=== PATIENT | male | born 1985 | race Caucasian/White ===

== ENCOUNTER 2016-12-16 08:33 | Inpatient (IN) | payer SELFPAY ==
[~2016-12-16] VITALS: Ht 182.9 cm; Wt 84.9 kg
[~2016-12-16 08:33] MED LIST: IBUP-1827 PO
[2016-12-16 08:38] VITALS: BP 157/96; PULSE 77; RESP 16; O2SAT 97
[2016-12-16] MEDS ORDERED: 0.9% Sodium Chloride 1,000 ML IV ONE ×2 (08:43→10:00)
--- NOTE | 2016-12-16 08:43 | ED.REPORT ---
HPI-General Illness Date of Service Dec 16, 2016 ED Provider: Jamir Navarro MD 30 year old male who presents to the ER with bilat arm pain after doing 195 pushups 4 days ago. The patient had some soreness initially, which has not improved. He then noticed that his urine was brown 2 days ago, which has since improved. Pt was incarcerated and saw the shelter nurse yesterday. He was noted to have a critical CPK [id number] and was referred here. Pt still reports severe arm pain. Pt denies any other significant medical history. Nursing Notes Stated Complaint: ARM PAIN Chief Complaint: General Complaint Nursing Notes Reviewed: Yes Allergies: Coded Allergies: No Known Allergies (Unverified , 05/14/16) Scheduled PRN Ibuprofen (Ibuprofen) 600 Mg Tablet 600 MG PO QID PRN PRN For Pain General Time Seen by MD: 08:35 Chief Complaint Other (Arm pain) Hx Obtained From: Patient Arrived By: Walk-in Sudden in Onset?: No Onset Occurred: 4 days ago Symptom Duration: Since onset Location: : Arm left: Arm right Quality: Painful Severity: Current: Severe Associated with: Denies: Fever, Shortness of breath Pertinent Negative: Relieved by nothing Past Medical History Past Medical History none reported Past Surgical History none reported Smoking History Smoker Current Status UNK Social History Does drink EtOH, but has not drank for 6 weeks Ambulatory Status Independent Review of Systems Full Review of Systems Respiratory: Denies: Shortness of breath Cardiovascular: Denies: Chest pain Musculoskeletal: Reports: Extremity pain Complete sys rev & neg: except as marked. Physical Exam Muscle soreness to chest, abd and deltoids Vital Signs Vital Signs Date Time Temp Pulse Resp B/P Pulse Ox O2 Delivery O2 Flow Rate FiO2 12/16/16 10:30 75 16 147/84 98 Room Air 12/16/16 08:38 36.6 77 16 157/96 97 Initial VS: Reviewed General/Constitutional: Well-developed, Well-nourished Head / Eyes: Atraumatic, Normocephalic, PERRL ENT: Mucous membranes moist, Conjunctiva normal, No scleral icterus Neck: Supple, Non-tender, Full range of motion Respiratory: Breath sounds normal, Clear to auscultation, No respiratory distress Cardiovascular: Regular rate & rhythm, Heart sounds normal, Intact distal pulses Abdomen / GI: Soft, Non-tender, No guarding, No rebound, No distention Extremities: Vascular intact, Neuro intact, No swelling, No tenderness Skin: Warm, Dry, No cyanosis Neurologic: Alert, Oriented, Nonfocal Psychiatric: Mood/affect normal, Behavior normal, Normal thought content Interpretation & Diagnostics Lab Results Interpretation Result Diagram: 12/16/16 0902 12/16/16 0902 Test 12/16/16 09:02 12/16/16 09:23 12/16/16 10:38 White Blood Count 8.4th/mm3 (3.8-10.1) Red Blood Count 4.74mil/mm3 (4.40-5.80) Hemoglobin 14.6g/dL (13.8-17.2) Hematocrit 41.9% (41.0-50.0) Mean Corpuscular Volume 88.4fL (81-100) Mean Corpuscular Hemoglobin 30.8pg (27.0-35.0) Mean Corpuscular Hemoglobin Concent 34.8% (32.0-37.0) Red Cell Distribution Width 12.4% (12.3-15.4) Platelet Count 246bil/L (150-400) Neutrophils (%) (Auto) 68.0% (40-74) Lymphocytes (%) (Auto) 20.0% (14-46) Monocytes (%) (Auto) 9.0% (4-12) Eosinophils (%) (Auto) 2.4% (0-5) Basophils (%) (Auto) 0.4% (0-3) Sodium Level 139mEq/L (134-144) Potassium Level 4.8mEq/L (3.5-5.2) Chloride Level 100mEq/L (97-108) Carbon Dioxide Level 23mmol/L (18-29) Blood Urea Nitrogen 16mg/dL (6-20) Creatinine 1.33mg/dL (0.76-1.27) Estimat Glomerular Filtration Rate 68mL/min (>59) Glucose Level 105mg/dL (60-99) Calcium Level 9.4mg/dL (8.5-10.1) Total Bilirubin 0.3mg/dL (0.0-1.2) Aspartate Amino Transf (AST/SGOT) 2333U/L (0-50) Alanine Aminotransferase (ALT/SGPT) 837U/L (0-44) Alkaline Phosphatase 59U/L (25-150) Total Protein 6.9g/dL (6.4-8.4) Albumin 4.0g/dL (3.4-5.0) Urine Color Sara (YELLOW) Urine Appearance Clear (CLEAR,HAZY) Urine pH 6.0 (5.0-8.0) Urine Specific [place] 1.012 (1.003-1.035) Urine Protein 100mg/dL (NEG,TRACE) Urine Glucose (UA) Negativemg/dL (NEGATIVE) Urine Ketones Negativemg/dL (NEGATIVE) Urine Occult Blood Large (NEGATIVE) Urine Nitrite Negative (NEGATIVE) Urine Bilirubin Negative (NEGATIVE) Urine Ictotest Negative (Negative) Urine Urobilinogen Normalmg/dL (NORMAL) Urine Leukocyte Esterase Trace (NEGATIVE) Urine RBC 0-2/hpf (0-2) Urine WBC 6-10/hpf (0-5) Urine Epithelial Cells Few/hpf (NONE-MOD) Urine Crystals None seen (NONE SEEN) Urine Bacteria None/hpf (NONE-FEW) Urine Hyaline Casts None/lpf (NONE) Urine Granular Casts Occasional (NONE SEEN) Urine Waxy Casts None seen (NONE SEEN) Urine Red Blood Cell Casts None seen (NONE SEEN) Urine White Blood Cell Casts None seen (NONE SEEN) Urine Mucus None seen (None Seen) Urine Trichomonas None seen (NONE SEEN) Urine Yeast None (NONE SEEN) Urinalysis Comment None Urine Culture Reflexed Indicated Re-Eval/Medical Decision Time of Eval: 09:28 Re-Evaluation/Progress Note: Pt requesting pain control. Awaiting UA. Time of Eval: 10:17 Re-Evaluation/Progress Note: Updated pt. Recommended admission. Pt understands and agrees with plan. All questions addressed. Consultation : Referral / Consult Name: David Urbina MD Consulted With: Hospitalist Call Returned at: 10:27 [employer]: Will see patient, Agrees with eval, Agrees with plan, Accepts admit Counseled Regarding: Diagnosis, Lab results, Need for admission Discharge & Departure Primary Impression: Rhabdomyolysis Rhabdomyolysis type: traumatic Encounter type: initial encounter Qualified Code: T79.6XXA - Traumatic ischemia of muscle, initial encounter Additional Impression: Acute hepatitis Disposition: ADMITTED TO HOSPITAL Discharge Condition All VS Reviewed: Yes Referrals: NOPCP (PCP) Scribe Attestation Portions of this note were transcribed by Teresa Hassan. I, (Dr. Navarro) personally performed the history, physical exam and medical decision-making; I reviewed and confirmed the accuracy of the information in the transcribed note. Signed by: Teresa Hassan. Brandi, 12/16/2016, 1028 Jamir Navarro MD Dec 16, 2016 08:43 Teresa Hassan Dec 16, 2016 09:05
[2016-12-16 09:15] LABS: BASOPHILS % (AUTO) 0.4 % (0-3); EOSINOPHILS % (AUTO) 2.4 % (0-5); Mean Corpuscular Hemoglobin 30.8 pg (27.0-35.0); Mean Corpuscular Volume 88.4 fL (81-100); Platelet Count 246 bil/L (150-400)
[2016-12-16 10:28] LABS: APPEARANCE,URINE CLEAR (CLEAR,HAZY); COLOR,URINE AMBER (YELLOW)
[2016-12-16 10:29] LABS: OCCULT BLOOD,URINE LARGE (NEGATIVE); UROBILINOGEN,URINE NORMAL (NORMAL)
[2016-12-16 10:30] VITALS: BP 147/84; PULSE 75; RESP 16; O2SAT 98
[2016-12-16] MEDS ORDERED: Ondansetron 2 mg/mL 2 mL Inj IVPUSH PRN ×2 (10:30→11:00)
[2016-12-16] MEDS ORDERED: Polyethylene Glycol (PEG) 17 Gm Powder PO PRN (10:30)
[2016-12-16] MEDS ORDERED: Alum-Mag Hydrox-Simeth 30 mL Suspension PO PRN ×2 (10:30→11:00)
[2016-12-16 10:31] LABS: ICTOTEST,URINE NEGATIVE (Negative)
[2016-12-16 11:21] VITALS: BP 147/84; PULSE 75; RESP 16; O2SAT 98
--- NOTE | 2016-12-16 11:36 | DRSVH ---
PROCEDURE: X-RAY CHEST, TWO VIEWS ([id number]) INDICATIONS: Elevated CPK possible Cardiomegaly TECHNIQUE: 2 views of the chest were acquired. COMPARISON: None. FINDINGS: Surgical changes and devices: None. Lungs and pleura: No pleural effusions or pneumothorax. Lungs are clear. Mediastinum: Mediastinal contours are normal. Heart size is normal. Bones and chest wall: No suspicious bony abnormalities. Soft tissues appear unremarkable. IMPRESSION: No acute cardiopulmonary disease process. Dictated by: Niharika Santoro MD, PhD on 12/16/2016 at 11:35 Approved by: Niharika Santoro MD, PhD on 12/16/2016 at 11:35
[2016-12-16 11:51] VITALS: BP 150/93; PULSE 69; RESP 16; O2SAT 95
[2016-12-16] MEDS: 0.9% Sodium Chloride 1,000 ML IV SCH ×3 (12:16→22:27)
--- NOTE | 2016-12-16 12:33 | NUR ---
Admit Patient arrived to room 239-2 at 1140 from ED. Patient oriented to room, steady on feet. Patient reports pain 4/10.
[2016-12-16 18:00] VITALS: BP 152/78; PULSE 70; RESP 16; O2SAT 95
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
[2016-12-16 20:04] VITALS: BP 173/94; PULSE 66; RESP 18; O2SAT 97
--- NOTE | 2016-12-17 01:28 | NUR ---
discomfort patient has discomfort to the arms. rates 6. per MD note (and explained to patient by md) "hold anti analgesics" patient notes 6 is tolerable. watching tv, texting. distracted. given supportive cares. refused heating pad. or ice.
[2016-12-17] MEDS: 0.9% Sodium Chloride 1,000 ML IV SCH ×5 (02:39→22:29)
[2016-12-17 04:17] VITALS: BP 122/78; PULSE 66; RESP 16; O2SAT 93
[2016-12-17 06:08] LABS: Hepatitis A Antibody IgM Negative (Negative); Hepatitis B Core Antibody IgM Negative (Negative)
[2016-12-17 06:37] LABS: BASOPHILS % (AUTO) 0.4 % (0-3); EOSINOPHILS % (AUTO) 2.8 % (0-5); MONOCYTES % (AUTO) 6.3 % (4-12); Mean Corpuscular Hemoglobin 30.3 pg (27.0-35.0); Mean Corpuscular Volume 90.8 fL (81-100); NEUTROPHILS % (AUTO) 62.7 % (40-74); Platelet Count 195 bil/L (150-400)
[2016-12-17 06:49] LABS: INR 0.96 ratio
[2016-12-17 07:16] LABS: Phosphorus 5.4 mg/dL (2.5-4.9)
[2016-12-17 11:01] VITALS: BP 120/64; PULSE 61; RESP 16; O2SAT 96
--- NOTE | 2016-12-17 15:37 | NUR ---
Social Work: Screening Data: Pt is a 30 y/o male admitted for rhabdo, acute hepatitis. Pt's PCP is not listed. Pt's insurance is self pay. EMR reviewed. Readmit score is 1, low. [facility] is [facility] and will [facility] to [facility] d/c. YARN [employer]ER will give pt [facility] application. Pt reports hx of alcohol abuse but has not had anything to drink in over a month while he has been in [facility]. [employer]ER will continue to follow if needs arise. Assessment: Pt who is independent at baseline. Plan: Pt will d/c back to [facility] when medically stable for d/c. [facility] [employer]ER will provide [facility] application for pt. YARN [employer]ER will continue to follow if needs arise. GO Mcfadden
[2016-12-17 17:59] VITALS: BP 157/91; PULSE 73; RESP 16; O2SAT 96
--- NOTE | 2016-12-17 18:01 | NUR ---
Pain Patient states pain is "improving". Last assessment patient rated pain 3/10. Patient watching tv, texting, visiting with family.
--- NOTE | 2016-12-17 21:59 | PCM.PNMED ---
Subjective Date of Service Dec 17, 2016 Subjective The patient is feeling a little bit better and his urine is starting to clear up a little bit of darkness scale of 1-10 he states now about a 5 with 10 being the darkness. He does complain of some edema and water retention still. He states that his right arm is feeling better than his left arm and left arm is still very sore. Exam Vital Signs Vital Sign - Last Date Time Temp Pulse Resp B/P Pulse Ox O2 Delivery O2 Flow Rate FiO2 12/17/16 17:59 36.6 73 16 157/91 96 Room Air Intake and Output 12/16/16 12/16/16 12/17/16 Cumulative From/Thru 15:00 23:00 07:00 12/16/16 08:38 - 12/17/16 04:45 Intake Total 2000 ml 1866 ml 2800 ml 6666 ml Output Total 1350 ml 2225 ml 3575 ml Balance 2000 ml 516 ml 575 ml 3091 ml Intake Oral 800 ml 600 ml 1400 ml IV Total 2000 ml 1066 ml 2200 ml 5266 ml Output Urine Total 1350 ml 2225 ml 3575 ml Exam General: Patient is in no apparent distress and remains quite comfortable lying supine in bed with head elevated at approximately 45. HEENT: Head is atraumatic and normocephalic. Eyes: Pupils are equally round and reactive to light and accommodation. The patient does have some periorbital edema present. Extraocular muscles are intact. Sclera are white, anicteric. Subconjunctival mucosa is pink. Ears and nose are unremarkable. Oropharynx: There is no mucosal lesions, there is no thrush, there is no pharyngitis. Neck: Is supple, there are no nodes, or masses or tenderness. Chest: Is clear to auscultation and percussion. There are no rales, rhonchi, wheezes or rubs. Heart: Rate, rhythm is regular. There is no murmur, rub or gallop. Abdomen: Good bowel sounds are present. Abdomen is soft, nontender, no organomegaly or masses were appreciated. Extremities: Are symmetrical and well perfused. There is edema of the upper extremities. However, now there is more edema of the left upper extremity than the right the right upper extremity edema is resolving faster than the left. There is no cellulitis, no rash. There is good range of motion of the extremities. Neurologic: There are no focal neurological deficits. Cranial nerves II through XII are intact. There are no sensory or motor deficits. Psychiatric: Patients mood is calm and shows no sign of agitation. Genital: Deferred Rectal: Deferred Lab and Diagnostics Result Diagram: 12/17/1661912/17/16619 Microbiology Name: SUKHDEEP GANDHI Age/Sex: 30/M Attend Dr: David Urbina Acct: [id number] Unit: [id number] Status: ADM IN Location: [place] [address] Re12/16/16 Disch: Specimen: [id number] Collected: 12/16/16 Status: RES Req#: [id number] Received: 12/16/16 Source: URINE CC Sp Desc : Subm Dr: Jamir Navarro MD Ordered: URINE CULT Procedure Result Verified Site Microbiology ROBERTO CULT URINE Preliminary 12/17/16-914 No growth to date X-Rays, CTs and MRIs PROCEDURE: X-RAY CHEST, TWO VIEWS ([id number]) INDICATIONS: Elevated CPK possible Cardiomegaly TECHNIQUE: 2 views of the chest were acquired. COMPARISON: None. FINDINGS: Surgical changes and devices: None. Lungs and pleura: No pleural effusions or pneumothorax. Lungs are clear. Mediastinum: Mediastinal contours are normal. Heart size is normal. Bones and chest wall: No suspicious bony abnormalities. Soft tissues appear unremarkable. IMPRESSION: No acute cardiopulmonary disease process. Dictated by: Niharika Santoro MD, PhD on 12/16/2016 at 11:35 Approved by: Niharika Santoro MD, PhD on 12/16/2016 at 11:35 Assessment & Plan The patient is a 30-year-old white male who has a history of alcoholism and is incarcerated after being convicted of his third DUI. Patient has been [facility] for approximately 1 month. Patient was doing "countdown pushups" with acquaintances in the [employer] [place] on Sunday 4 days ago. He stated that he did 195 pushups. Patient experienced some soreness initially and has experienced this type of soreness when he is lifting weights in the past. He as a precaution drink lots of water on Sunday night. Then on Sunday he was still very sore and he drank lots of water. However, his arms were so swollen he could not even bend his arm at the elbow to bring food to his mouth. Patient continued to drink lots of water. On 2 days prior to admission he states that his "pee turned brown". He drank a half to three quarters of a gallon of water and this pee cleared up a little bit low but was still brown. On night he called his grandmother who was a former registered nurse at [facility] and she told him that he had rhabdomyolysis and he should see the nurse. He told the penitentiary guards that he needed to see the nurse that it was an emergency however the nurse had not just left for the day. On Sunday morning he was seen by the nurse and the nurse mansoor some blood and as test results are pending patient continued to drink water and was still very sore and still had brown urine. The patient was called in to the nurse's office this morning and he thought he was going to get more testing or treatment and they told him because of his blood tests he needed to go to the hospital and they brought him to the hospital. This was brought to [facility] emergency room where he was evaluated by Dr. Jamir Navarro. Dr. Navarro checked a urinalysis which showed only 0-2 red blood cells 6-10 white blood cells and granular cast and large amounts of occult blood consistent with myoglobinuria and rhabdomyolysis. Therefore, patient was admitted to the hospital service for further evaluation and treatment. # Rhabdomyolysis - Patient has a markedly elevated CPK (over 194,000) - We will continue aggressive hydration with normal saline at 200 mL an hour - With any sign of acidosis or increased renal insufficiency we will consider adding bicarbonate to the IV fluids to alkalize the urine - Therefore will repeat BMP this evening. Result is pending. - We will check daily CPK, CMP and monitor and correct electrolytes as needed. - Check BART as patient's grandmother has lupus # Acute renal failure secondary to above - We will continue to monitor patient's BUN/creatinine closely - We will monitor bicarbonate if there appears to be some acidosis will add bicarbonate to alkalinize urine # Significant transaminitis - Check acute hepatitis panel - Check hepatitis C antibody - Continue IV fluids - Hold all anti-analgesics # History of alcoholism - Patient was counseled on alcohol cessation completely today. - Could be playing a role in the transaminitis Disposition: Patient will likely be here for several days for the evaluation treatment of the above problem. If patient's renal function worsens or myoglobinuria worsens will consider nephrology consultation. Pain Evaluation: Adequate Pain Control GI Prophylaxis: Not indicated VTE Prophylaxis: Sub-Q Enoxaparin Resuscitation Status: CPR: Attempt Resuscitation David Urbina MD Dec 17, 2016 21:59
[2016-12-18 00:30] VITALS: BP 148/88; PULSE 55; RESP 16; O2SAT 97
--- NOTE | 2016-12-18 02:48 | NUR ---
Swelling/weight gain Patient states feeling of fluid retention in L-arm and chest area stepped on scale states he believes he has gained 5-6 pounds [facility] no signs of infiltrate will recheck weight in am and continue to monitor
[2016-12-18] MEDS: 0.9% Sodium Chloride 1,000 ML IV SCH ×3 (03:31→16:48)
[2016-12-18 06:25] VITALS: BP 129/80; PULSE 56; RESP 16; O2SAT 98
[2016-12-18 07:00] LABS: BASOPHILS % (AUTO) 0.4 % (0-3); MONOCYTES % (AUTO) 5.9 % (4-12); Mean Corpuscular Hemoglobin 30.5 pg (27.0-35.0); Mean Corpuscular Volume 89.5 fL (81-100); NEUTROPHILS % (AUTO) 64.6 % (40-74); Platelet Count 213 bil/L (150-400)
[2016-12-18 07:22] LABS: Magnesium 1.7 mg/dL (1.6-2.6)
[2016-12-18 10:20] VITALS: BP 145/64; PULSE 54; RESP 14; O2SAT 96
--- NOTE | 2016-12-18 10:38 | NUR ---
Morning Rounds Staffed patient's case with Dr. Urbina and case management. Made MD aware of patient's complaints of skin tightness on left arm, chest soreness and skin tightness across the chest, as patient stated he believes he is retaining some fluid. Dr. Urbina stated patient could possibly be retaining fluid, but he also should start urinating quite a bit. No plan for discharge at this time.
[2016-12-18 11:08] LABS: Antiribosomal P Antibodies <0.2 AI (0.0-0.9); Antiscleroderma - 70 AB <0.2 AI (0.0-0.9)
[2016-12-18] MEDS ORDERED: Furosemide 10 mg/mL 2 mL Inj IVPUSH ONE (13:25)
[2016-12-18 14:15] VITALS: BP 149/92; PULSE 81; RESP 18; O2SAT 98
--- NOTE | 2016-12-18 14:26 | NUR ---
Social Work-readiness for discharge: Data:EMR reviewed. Pt is on day 2 of hospitalization for rhabdo per H&P. Pt is not medically stable anticipate 1-2 more days. Pt had been in detention, but currently no guard present at room. SW checked in with pt at bedside, SW role explained. SW provided pt with [facility] application for Hospitalization due to lack of insurance. SW also discussed DPOA/ advanced directive, pt confirms that he has not completed this and is not interested in any information. Per RN notes, pt has been up independent in his room. No anticipated discharge needs. Sw ill continue to follow if needs arise. Assessment:pt who is independent at baseline. Plan:Pt to either self present back to detention or return home at discharge. Pt has no guard present at bedside. No anticipated discharge needs. Sw ill continue to follow if needs arise. GO Maharaj
[2016-12-18 14:47] LABS: APPEARANCE,URINE HAZY (CLEAR,HAZY); COLOR,URINE STRAW (YELLOW); OCCULT BLOOD,URINE LARGE (NEGATIVE); PH,URINE 6.5 (5.0-8.0); UROBILINOGEN,URINE NORMAL (NORMAL)
--- NOTE | 2016-12-18 16:27 | NUR ---
Hygiene Patient was able to shower independently this shift.
[2016-12-18 18:10] VITALS: BP 156/80; PULSE 63; RESP 18; O2SAT 96
--- NOTE | 2016-12-18 19:59 | CONS ---
[address] [address] CONSULTATION REPORT PATIENT: SUKHDEEP GANDHI : 1985 MR#: [id number] ADMIT: 12/16/2016 JOB ID: [id number] DATE OF SERVICE: REQUESTING PHYSICIAN: Dr. Urbina. REASON FOR CONSULTATION: Management of acute kidney injury and fluid retention. PRESENT ILLNESS: This is a 30-year-old, male without significant past medical history, who came to the hospital due to elevation of CPK level. Apparently patient has been incarcerated at [facility] for about one month due to history of DUI. The patient was doing countdown pushups with other inmates on December 12. He stated that he did a total for 195 pushups. On the next day, he noticed some soreness on the triceps area. Later on, two days after the push-ups, he noticed that his urine turned brown. He started to drink plenty of water. He then called his grandmother, who was a former registered nurses at [facility] [facility]. He was told that he had rhabdomyolysis. Subsequently, patient went to see a nurse in the nursing home. The serum CPK was checked and later on, he was told to come to the hospital for further treatment. The initial CPK that was done at the nurse's office in nursing home showed the level of 13,454. The initial blood work showed a sodium of 139, potassium of 4.8, chloride 100, bicarb of 23, BUN of 16, creatinine of 1.33. Glucose of 105. AST 2333, ALT 837. Total CPK 194,900. Albumin 4.0. The patient has received IV fluids, normal saline 200 cc/hour. He has gained 5 pounds within 48 hours. He endorses he has swollen eyelids and face. He has no chest pain. No shortness of breath. No nausea, vomiting. No diarrhea. Typically, he is a healthy individual. He does not take any medications on a regular basis. He has no history of skin rash except eczema, no history of hair loss. No oral ulcers. No joint pain, joint swelling in general. He stated that his grandmother had history of lupus. Today, his blood work showed sodium 140, potassium of 4.1, chloride 105, bicarb was 22, BUN of 17 creatinine of 0.93 cm. AST 1318, ALT 658. Total CPK 71,500, total protein 5.6. The patient reported that he has not done any heavy exercise for the past 6-7 months. He admitted that the pushups that he did was quite extensive within a short period of time. PAST MEDICAL HISTORY: Negative. PAST SURGICAL HISTORY: Negative. SOCIAL HISTORY: Positive for DUI x3. He is incarcerated at the [facility]. He smoked 2-3 cigarettes per day prior to going to nursing home. The patient has been drinking heavily intermittently since his teenage years. He basically drinks 6-7 beers per night. Since he has been incarcerated, he has stopped drinking. FAMILY HISTORY: Grandmother has history of diabetes and lupus. No history of kidney disease in the family. PHYSICAL EXAMINATION: Vitals: Temperature 36.7, pulse 54, respiratory 14, blood pressure 145/64, O2 sats 96% on room air. General appearance: Awake, alert, oriented x3. In no acute distress. HEENT: No pallor. No jaundice. No JVD. No lymphadenopathy. No thyroid enlargement. Puffy eyelids noted. Positive eczema on the eyebrows and around the periorbital area. Heart: Regular rhythm. Normal S1, S2. No murmurs, rubs, or gallops. Lungs: Clear to auscultation bilaterally. No wheezing. No rhonchi. Abdomen soft, active bowel sounds. Nontender. Nondistended. No hepatosplenomegaly. Extremities: No edema, cyanosis or clubbing of fingers. LABORATORY: Sodium 140, potassium 4.1, chloride 105, bicarb 22, BUN 17, creatinine 0.93. Glucose 105, calcium 9.2, magnesium 1.7. AST 1318, ALT 658. Total creatine kinase 71,500. Albumin 5.6. INR 0.96. Hemoglobin 13.. Double-stranded DNA antibody negative. Hepatitis A IgM, hepatitis B surface antigen, hepatitis C core IgM, hepatitis C antibody are negative. ASSESSMENT: 1. Acute kidney injury secondary to rhabdomyolysis. 2. Rhabdomyolysis. Extensive exercise within a short period of time. 3. Transaminitis, likely due to rhabdomyolysis, possibly alcoholic hepatitis. 4. Fluid retention. PLAN: The patient is now in recovery phase of acute kidney injury and rhabdomyolysis. He reported that he has had normal-looking urine over the past 24 hours. He has some soreness on both arms and shoulders. His kidney functions, serum creatinine 0.93, with a trending total creatine kinase. Luckily the patient has no pre-existing kidney disease and he drank a lot of water after the incidence of discolored urine. At this point, I will decrease the fluid down to 80 cc/hour. Will give him a low-dose IV Lasix 20 mg x1 to enhance the urine flow. I will repeat another UA to see if he still has any myoglobin. Will order urine protein/creatinine ratio since it was positive from the previous UA. However, it could be because of concentrated urine. We will repeat BMP in am. Thank you for allowing me to participate in the care of your patient. OPAL
--- NOTE | 2016-12-18 20:08 | PCM.PNMED ---
Subjective Date of Service Dec 18, 2016 Subjective The patient is feeling a little bit better today. He states his urine is clearing up. He states that he is still having swelling of his left upper extremity more than his right, and subcutaneous edema of his chest, however overall he is feeling better. He does complain of his eczema on his face getting a little bit worse and he also has psoriasis of the scalp. Exam Vital Signs Vital Sign - Last Date Time Temp Pulse Resp B/P Pulse Ox O2 Delivery O2 Flow Rate FiO2 12/18/16 18:10 37.2 63 18 156/80 96 Room Air Intake and Output 12/17/16 12/17/16 12/18/16 Cumulative From/Thru 15:00 23:00 07:00 12/16/16 08:38 - 12/18/16 06:24 Intake Total 3639 ml 3431 ml 02214 ml Output Total 2570 ml 1650 ml 7795 ml Balance 1069 ml 1781 ml 5941 ml Intake Oral 1063 ml 930 ml 3393 ml IV Total 2576 ml 2501 ml 67215 ml Output Urine Total 2570 ml 1650 ml 7795 ml # Bowel Movements 0 0 Exam General: Patient is in no apparent distress and remains quite comfortable lying supine in bed with head elevated at approximately 45. HEENT: Head is atraumatic and normocephalic. Eyes: Pupils are equally round and reactive to light and accommodation. The patient does have some periorbital edema still present. Extraocular muscles are intact. Sclera are white, anicteric. Subconjunctival mucosa is pink. Ears and nose are unremarkable. Oropharynx: There is no mucosal lesions, there is no thrush, there is no pharyngitis. Neck: Is supple, there are no nodes, or masses or tenderness. Chest: Is clear to auscultation and percussion. There are no rales, rhonchi, wheezes or rubs. There is some subcutaneous edema anterior chest wall which has improved since yesterday. Heart: Rate, rhythm is regular. There is no new murmur, rub or gallop. Abdomen: Good bowel sounds are present. Abdomen is soft, nontender, no organomegaly or masses were appreciated. Extremities: Are well perfused. There is edema of the upper extremities. However, there is still slightly more edema of the left upper extremity than the right the right upper extremity edema is resolving faster than the left. There is no cellulitis, no rash. There is good range of motion of the extremities. Neurologic: There are no focal neurological deficits. Cranial nerves II through XII are intact. There are no sensory or motor deficits. Psychiatric: Patients mood is calm and shows no sign of agitation. Genital: Deferred Rectal: Deferred Lab and Diagnostics Result Diagram: 12/18/1635 12/18/1635 Microbiology Name: SUKHDEEP GANDHI Age/Sex: 30/M Attend Dr: David Urbina Acct: [id number] Unit: [id number] Status: ADM IN Location: [place] [address]2 Re12/16/16 Disch: Specimen: [id number] Collected: 12/16/16 Status: RES Req#: [id number] Received: 12/16/16 Source: URINE CC Sp Desc : Subm Dr: Jamir Navarro MD Ordered: URINE CULT Procedure Result Verified Site Microbiology ROBERTO CULT URINE Preliminary 12/17/16 No growth to date X-Rays, CTs and MRIs PROCEDURE: X-RAY CHEST, TWO VIEWS ([id number]) INDICATIONS: Elevated CPK possible Cardiomegaly TECHNIQUE: 2 views of the chest were acquired. COMPARISON: None. FINDINGS: Surgical changes and devices: None. Lungs and pleura: No pleural effusions or pneumothorax. Lungs are clear. Mediastinum: Mediastinal contours are normal. Heart size is normal. Bones and chest wall: No suspicious bony abnormalities. Soft tissues appear unremarkable. IMPRESSION: No acute cardiopulmonary disease process. Dictated by: Niharika Santoro MD, PhD on 12/16/2016 at 11:35 Approved by: Niharika Santoro MD, PhD on 12/16/2016 at 11:35 Assessment & Plan The patient is a 30-year-old white male who has a history of alcoholism and is incarcerated after being convicted of his third DUI. Patient has been [facility] long-term for approximately 1 month. Patient was doing "countdown pushups" with acquaintances in the [employer] on Sunday 4 days ago. He stated that he did 195 pushups. Patient experienced some soreness initially and has experienced this type of soreness when he is lifting weights in the past. He as a precaution drink lots of water on Sunday night. Then on Sunday he was still very sore and he drank lots of water. However, his arms were so swollen he could not even bend his arm at the elbow to bring food to his mouth. Patient continued to drink lots of water. On 2 days prior to admission he states that his "pee turned brown". He drank a half to three quarters of a gallon of water and this pee cleared up a little bit low but was still brown. On night he called his grandmother who was a former registered nurse at [facility] and she told him that he had rhabdomyolysis and he should see the nurse. He told the long-term guards that he needed to see the nurse that it was an emergency however the nurse had not just left for the day. On Sunday morning he was seen by the nurse and the nurse mansoor some blood and as test results are pending patient continued to drink water and was still very sore and still had brown urine. The patient was called in to the nurse's office this morning and he thought he was going to get more testing or treatment and they told him because of his blood tests he needed to go to the hospital and they brought him to the hospital. This was brought to [facility] emergency room where he was evaluated by Dr. Jamir Navarro. Dr. Navarro checked a urinalysis which showed only 0-2 red blood cells 6-10 white blood cells and granular cast and large amounts of occult blood consistent with myoglobinuria and rhabdomyolysis. Therefore, patient was admitted to the hospital service for further evaluation and treatment. # Rhabdomyolysis - Patient has a markedly elevated CPK (over 194,000) - We will continue hydration with normal saline at 80 mL an hour - With any sign of acidosis or increased renal insufficiency we will consider adding bicarbonate to the IV fluids to alkalize the urine - We will check daily CPK, CMP and monitor and correct electrolytes as needed. - Check BART as patient's grandmother has lupus # Acute renal failure secondary to above - We will continue to monitor patient's BUN/creatinine closely - We will monitor bicarbonate if there appears to be some acidosis will add bicarbonate to alkalinize urine - I have asked Dr. Bonilla of nephrology to see the patient and will follow her recommendations at this time. # Significant transaminitis improving - Acute hepatitis panel is negative - The hepatitis C antibody was negative - Continue IV fluids - Hold all analgesics for now # History of alcoholism - Patient was counseled on alcohol cessation completely. - Could be playing a role in the transaminitis Disposition: Patient will likely be here for several days for the evaluation treatment of the above problem. Pain Evaluation: Adequate Pain Control GI Prophylaxis: Not indicated VTE Prophylaxis: Sub-Q Enoxaparin Resuscitation Status: CPR: Attempt Resuscitation David Urbina MD Dec 18, 2016 20:08
[2016-12-18 22:18] VITALS: BP 133/75; PULSE 89; RESP 18; O2SAT 95
[2016-12-19 02:05] VITALS: BP 148/92; PULSE 58; RESP 18; O2SAT 96
[2016-12-19 05:08] LABS: Myoglobin, Serum 12023 ng/mL (28-72)
--- NOTE | 2016-12-19 05:54 | NUR ---
Swelling/soreness pt states swelling of his left upper arm looks much better than it has been, and looks almost like right arm. pt states chest soreness and tightness is still there very slightly. Urine is pale yellow in color. pt denies pain/nausea. will continue to monitor.
[2016-12-19 06:04] VITALS: BP 131/77; PULSE 58; RESP 16; O2SAT 94
[2016-12-19 07:11] LABS: BASOPHILS % (AUTO) 0.7 % (0-3); EOSINOPHILS % (AUTO) 4.3 % (0-5); MONOCYTES % (AUTO) 4.9 % (4-12); Mean Corpuscular Hemoglobin 30.4 pg (27.0-35.0); NEUTROPHILS % (AUTO) 58.2 % (40-74); Platelet Count 239 bil/L (150-400)
[2016-12-19 08:00] LABS: Magnesium 1.5 mg/dL (1.6-2.6)
[2016-12-19 08:37] LABS: Creatine Kinase 34500 U/L (21-232)
[2016-12-19 11:05] VITALS: BP 144/86; PULSE 52; RESP 14; O2SAT 97
--- NOTE | 2016-12-19 11:35 | NUR ---
Social work note - Discharge PULP OPERATOR met with pt - pt's grandmother also in the room. PULP OPERATOR provided update that pt may be able to d/c later today. Pt states that [facility]. He admits that he would like to stay in the hospital a few more days - states that his birthday is this week. PULP OPERATOR encouraged pt to bring d/c instructions and any Rx to the RN at [facility] after d/c. PULP OPERATOR explored PCP - Pt states that he does not have one but is sentenced for 4 more months [facility]. He has application for [facility] for his medical bills - Pt states he will work on it today. PULP OPERATOR provided support - no other needs identified. PULP OPERATOR will follow if needs arise. Plan: Pt will present to [facility] when medically stable. KHAI Vaca
--- NOTE | 2016-12-19 11:36 | PCM.DIMED ---
Discharge Instructions Date of Service Dec 19, 2016 Dates of Hospitalization Dec 16, 2016 at 11:01 Discharge Diagnosis Discharge Diagnosis # Exertional Rhabdomyolysis ,improved # Acute renal failure secondary to above,resolved # Significant transaminitis due to rhabdomyolysis, improving # History of alcoholism Diet No restrictions Activity Other (please avoid strenous physical activity for the next 1-2 weeks. Please keep hydrated whenever exercisng .) Call your provider Fever or Chills, Shortness of breath, Bleeding, Chest pain, Vomitting, Excessive diarrhea, Weakness (unilateral) Patient Instructions You were hospitalized due to exertional rhabdomyolysis/muscle breakdown due to exertion with poor hydration. You have been treated with IV fluid aggressively. Please avoid strenuous physical activity for the next 1-2 weeks. Please keep hydrated whenever exercising. Follow-up plan Please get a new PCP and follow-up. Follow-up with PCP in: 2 weeks Frankie Worrell MD Dec 19, 2016 11:36
--- NOTE | 2016-12-19 11:43 | DRSVH ---
[facility] [address] [place] [address] Echocardiogram Report Name: SUKHDEEP GANDHI Study Date: 12/19/2016 Height: 72 in Hospital Exam Location: [facility] Weight: 187 lb Gender: Male BSA: 2.1 m2 : 1985 Age: 30 yrs Reason For Study: ANASACHINO Ordering Physician: HOSPITALIST [facility] Performed By: Bobby Beebe Referring Physician: JACKIE SOLORIO Interpretation Summary The left ventricle is mildly dilated. The ejection fraction is estimated to be 55-60%. The right ventricle is normal in size, thickness and function. The right ventricle is normal in size, thickness and function. Pulmonary artery pressures cannot be estimated because of the lack of a measurable TR jet velocity. The left atrium is moderately dilated. The right atrium is mildly dilated. There is mild mitral regurgitation. There is no other significant valvular heart disease. The aortic root is normal size. Procedure: A two-dimensional transthoracic echocardiogram with color flow and Doppler was performed. The study quality was technically good. There is no prior echocardiogram noted for this patient. The patient was in sinus bradycardia with heart rates between 46-52 bpm during the exam. Left Ventricle: The left ventricle is mildly dilated. There is normal left ventricular wall thickness. Left ventricular systolic function is normal without focal wall motion abnormalities. The ejection fraction is estimated to be 55-60%. Assessment of diastolic parameters indicates normal left ventricular diastolic function and normal filling pressures. Right Ventricle: The right ventricle is normal in size, thickness and function. Atria: The left atrium is moderately dilated. The right atrium is mildly dilated. The interatrial septum is intact with no evidence for an atrial septal defect. Mitral Valve: The mitral valve is normal. There is mild mitral regurgitation. Aortic Valve: The aortic valve is normal in structure and function. No aortic regurgitation is present. Tricuspid Valve: The tricuspid valve is normal. There is a trace or physiologic amount of tricuspid regurgitation. Pulmonary artery pressures cannot be estimated because of the lack of a measurable TR jet velocity. Pulmonic Valve: The pulmonic valve leaflets are thin and pliable; valve motion is normal. There is trace pulmonic regurgitation. There is no other significant valvular heart disease. Great Vessels: The aortic root is normal size. The dimensions of the ascending aorta are normal. The pulmonary artery is normal size. The IVC is of normal diameter and collapses greater than 50% with a sniff. This suggests a low right atrial pressure of 3 mm Hg. Pericardium/ Pleura There is no pericardial effusion. There is no pleural effusion. MMode/2D Measurements & Calculations LVIDd: 5.9 cm RA long axis LVOT diam: 2.3 cm LVIDs: 4.2 cm LA A2 area: 24.1 cm AoV Opening FS: 28.6 % LA A4 area: 25.0 cm RA area EPSS: 0.88 cm LA length (vol) Ao root diam IVSd: 0.94 cm : 21.7 cm LVPWd: 0.85 cm LA vol: 91.3 ml RA vol asc Aorta Diam LA vol index : 74.1 ml RA Ao Arch Diam (Prox : 35.8 mm2 Trans): 2.6 cm IVC diam: 1.7 cm LV clayton. diameter/BSA LV sys. diameter/BSA RVD1 (basal) RVD2 (mid): 3.6 cm (cm/m^2): 2.9 (cm/m^2): 2.0 TAPSE: 2.2 cm Doppler Measurements & Calculations Ao V2 max MV E max simon MV E/A: 2.2 PA V2 max : 136.7 cm/sec : 101.2 cm/sec Med Peak E' Simon : 84.8 cm/sec Ao max P.5 mmHg MV A max simon PA mean PG Ao mean P.9 mmHg : 45.2 cm/sec E/E' med: 13.3 : 1.4 mmHg LVOT Max Simon Lat Peak E' Simon : 100.6 cm/sec E/E' lat: 6.3 NICOL(I,D): 2.9 cm E/e' average: 9.8 sev ratio: 0.68 MV dec time: 0.16 sec Ao V2 mean LV V1 max PG PA V2 mean : 92.6 cm/sec : 55.2 cm/sec Ao V2 VTI: 32.4 cm LV V1 VTI: 22.0 cm PA pr(Accel) NICOL(V,D): 3.2 cm2 : -27.5 mmHg NICOL indexed to BSA (cm^2/m^2): 1.4 Reading Physician:PASHA
--- NOTE | 2016-12-19 11:43 | PCM.DC.MED ---
Discharge Summary Date of Service Dec 19, 2016 Dates of Hospitalization Date of Hospital Admission Dec 16, 2016 at 11:01 Date of Discharge: Dec 19, 2016 Providers: Admitting Physician: David Urbina MD Primary Care Physician: Zacarias Attending Physician: David Urbina MD Diagnosis at Time of Discharge Diagnosis at Time of Discharge # Exertional Rhabdomyolysis ,improved # Acute renal failure secondary to above,resolved # Significant transaminitis due to rhabdomyolysis, improving # History of alcoholism Consultations nephrology Dr Bonilla Procedures XRay, CTs & MRIs PROCEDURE: X-RAY CHEST, TWO VIEWS ([id number]) INDICATIONS: Elevated CPK possible Cardiomegaly TECHNIQUE: 2 views of the chest were acquired. COMPARISON: None. FINDINGS: Surgical changes and devices: None. Lungs and pleura: No pleural effusions or pneumothorax. Lungs are clear. Mediastinum: Mediastinal contours are normal. Heart size is normal. Bones and chest wall: No suspicious bony abnormalities. Soft tissues appear unremarkable. IMPRESSION: No acute cardiopulmonary disease process. Dictated by: Niharika Santoro MD, PhD on 12/16/2016 at 11:35 Brief History per HPI by Dr urbina on 12/16/16 The patient is a 30-year-old white male who has a history of alcoholism and is incarcerated after being convicted of his third DUI. Patient has been [facility] for approximately 1 month. Patient was doing "countdown pushups" with acquaintances in the [place] on Sunday 4 days ago. He stated that he did 195 pushups. Patient experienced some soreness initially and has experienced this type of soreness when he is lifting weights in the past. He as a precaution drink lots of water on Sunday night. Then on Sunday he was still very sore and he drank lots of water. However, his arms were so swollen he could not even bend his arm at the elbow to bring food to his mouth. Patient continued to drink lots of water. On 2 days prior to admission he states that his "pee turned brown". He drank a half to three quarters of a gallon of water and this pee cleared up a little bit low but was still brown. On night he called his grandmother who was a former registered nurse at [facility] and she told him that he had rhabdomyolysis and he should see the nurse. He told the [facility] guards that he needed to see the nurse that it was an emergency however the nurse had not just left for the day. On Sunday morning he was seen by the nurse and the nurse mansoor some blood and as test results are pending patient continued to drink water and was still very sore and still had brown urine. The patient was called in to the nurse's office this morning and he thought he was going to get more testing or treatment and they told him because of his blood tests he needed to go to the hospital and they brought him to the hospital. This was brought to [facility] emergency room where he was evaluated by Dr. Jamir Navarro. Dr. Navarro checked a urinalysis which showed only 0-2 red blood cells 6-10 white blood cells and granular cast and large amounts of occult blood consistent with myoglobinuria and rhabdomyolysis. Therefore, patient was admitted to the hospital service for further evaluation and treatment. Hospital Course The patient is a 30-year-old white male who has a history of alcoholism and is incarcerated after being convicted of his third DUI. Patient has been [facility] for approximately 1 month. Patient was doing "countdown pushups" with acquaintances in the [place] on Sunday 4 days ago. He stated that he did 195 pushups. Patient experienced some soreness initially and has experienced this type of soreness when he is lifting weights in the past. He as a precaution drink lots of water on Sunday night. Then on Sunday he was still very sore and he drank lots of water. However, his arms were so swollen he could not even bend his arm at the elbow to bring food to his mouth. Patient continued to drink lots of water. On 2 days prior to admission he states that his "pee turned brown". He drank a half to three quarters of a gallon of water and this pee cleared up a little bit low but was still brown. On night he called his grandmother who was a former registered nurse at [facility] and she told him that he had rhabdomyolysis and he should see the nurse. He told the [facility] guards that he needed to see the nurse that it was an emergency however the nurse had not just left for the day. On Sunday morning he was seen by the nurse and the nurse mansoor some blood and as test results are pending patient continued to drink water and was still very sore and still had brown urine. The patient was called in to the nurse's office this morning and he thought he was going to get more testing or treatment and they told him because of his blood tests he needed to go to the hospital and they brought him to the hospital. This was brought to [facility] emergency room where he was evaluated by Dr. Jamir Navarro. Dr. Navarro checked a urinalysis which showed only 0-2 red blood cells 6-10 white blood cells and granular cast and large amounts of occult blood consistent with myoglobinuria and rhabdomyolysis. Therefore, patient was admitted to the hospital service for further evaluation and treatment. # Rhabdomyolysis - Patient has a markedly elevated CPK initially (over 194,000). [place] [id number] today. -Treated with aggressive hydration with normal saline -Did not require bicarbonate # Acute renal failure secondary to above - Treated with aggressive hydration and resolved # Significant transaminitis due to rhabdomyolysis improving - Acute hepatitis panel is negative - The hepatitis C antibody was negative # History of alcoholism - Patient was counseled on alcohol cessation completely. - Could be playing a role in the transaminitis Disposition: Continues to improve . Will discharge. Patient to self-report to [facility] Exam Vital Signs (Last) Date Time Temp Pulse Resp B/P Pulse Ox O2 Delivery O2 Flow Rate FiO2 12/19/16 11:05 36.8 52 14 144/86 97 Room Air Exam General: Patient is in no apparent distress and remains quite comfortable lying supine in bed with head elevated at approximately 45. HEENT: Head is atraumatic and normocephalic. Eyes: Pupils are equally round and reactive to light and accommodation. The patient does have some periorbital edema still present. Extraocular muscles are intact. Sclera are white, anicteric. Subconjunctival mucosa is pink. Ears and nose are unremarkable. Oropharynx: There is no mucosal lesions, there is no thrush, there is no pharyngitis. Neck: Is supple, there are no nodes, or masses or tenderness. Chest: Is clear to auscultation and percussion. There are no rales, rhonchi, wheezes or rubs. There is some subcutaneous edema anterior chest wall which has improved since yesterday. Heart: Rate, rhythm is regular. There is no new murmur, rub or gallop. Abdomen: Good bowel sounds are present. Abdomen is soft, nontender, no organomegaly or masses were appreciated. Extremities: Are well perfused. There is edema of the upper extremities. However, there is still slightly more edema of the left upper extremity than the right the right upper extremity edema is resolving faster than the left. There is no cellulitis, no rash. There is good range of motion of the extremities. Neurologic: There are no focal neurological deficits. Cranial nerves II through XII are intact. There are no sensory or motor deficits. Psychiatric: Patients mood is calm and shows no sign of agitation. Genital: Deferred Rectal: Deferred Test 12/16/16 09:02 12/16/16 09:23 12/16/16 10:38 12/17/16 06:20 Pro-B-Type Natriuretic Peptide 44.49pg/mL (0-86) Urine Ictotest Negative (Negative) Myoglobin 86216fx/mL (28-72) Hepatitis A IgM Antibody Negative (Negative) Hepatitis B Surface Antigen Negative (Negative) Hepatitis B Core IgM Antibody Negative (Negative) Hepatitis C Antibody <0.1s/co ratio (0.0-0.9) Hepatitis C Comment Comment (.) Prothrombin Time 10.3sec (8.1-12.5) Prothromb Time International Ratio 0.96ratio Phosphorus Level 5.4mg/dL (2.5-4.9) Triglycerides Level 106mg/dL (0-149) Cholesterol Level 192mg/dL (100-199) LDL Cholesterol, Calculated 134.800mg/dL (0-99) VLDL Cholesterol 21.200mg/dL HDL Cholesterol 36mg/dL (>39) Cholesterol/HDL Ratio 5.33 (0.0-4.4) Chemistry Comments Comment (.) Sjogren's Antibody (T) < 0.2AI (0.0-0.9) SM/TRAFFIC WORKFORCE REPRESENTATIVE Antibody <0.2AI (0.0-0.9) Chromatin Antibody <0.2AI (0.0-0.9) Centromere B Antibody < 0.2AI (0.0-0.9) Test 12/18/16 14:03 3/21/17 06:45 Urine Color Straw (YELLOW) Urine Appearance Hazy (CLEAR,HAZY) Urine pH 6.5 (5.0-8.0) Urine Specific [place]ola 1.010 (1.003-1.035) Urine Protein Negativemg/dL (NEG,TRACE) Urine Glucose (UA) Negativemg/dL (NEGATIVE) Urine Ketones Negativemg/dL (NEGATIVE) Urine Occult Blood Large (NEGATIVE) Urine Nitrite Negative (NEGATIVE) Urine Bilirubin Negative (NEGATIVE) Urine Urobilinogen Normalmg/dL (NORMAL) Urine Leukocyte Esterase Negative (NEGATIVE) Urine RBC 3-10/hpf (0-2) Urine WBC 0-5/hpf (0-5) Urine Epithelial Cells Occasional/hpf (NONE-MOD) Urine Crystals None seen (NONE SEEN) Urine Bacteria None/hpf (NONE-FEW) Urine Hyaline Casts None/lpf (NONE) Urine Granular Casts None seen (NONE SEEN) Urine Waxy Casts None seen (NONE SEEN) Urine Red Blood Cell Casts None seen (NONE SEEN) Urine White Blood Cell Casts None seen (NONE SEEN) Urine Mucus None seen (None Seen) Urine Trichomonas None seen (NONE SEEN) Urine Yeast None (NONE SEEN) Urinalysis Comment None Urine Culture Reflexed Not indicated Urine Random Creatinine 33mg/dL (24-392) Urine Random Total Protein 11mg/dL (0-15) White Blood Count 6.1th/mm3 (3.8-10.1) Red Blood Count 4.54mil/mm3 (4.40-5.80) Hemoglobin 13.8g/dL (13.8-17.2) Hematocrit 40.4% (41.0-50.0) Mean Corpuscular Volume 89.0fL (81-100) Mean Corpuscular Hemoglobin 30.4pg (27.0-35.0) Mean Corpuscular Hemoglobin Concent 34.2% (32.0-37.0) Red Cell Distribution Width 12.1% (12.3-15.4) Platelet Count 239bil/L (150-400) Neutrophils (%) (Auto) 58.2% (40-74) Lymphocytes (%) (Auto) 31.6% (14-46) Monocytes (%) (Auto) 4.9% (4-12) Eosinophils (%) (Auto) 4.3% (0-5) Basophils (%) (Auto) 0.7% (0-3) Sodium Level 142mEq/L (134-144) Potassium Level 4.0mEq/L (3.5-5.2) Chloride Level 104mEq/L (97-108) Carbon Dioxide Level 23mmol/L (18-29) Blood Urea Nitrogen 16mg/dL (6-20) Creatinine 0.98mg/dL (0.76-1.27) Estimat Glomerular Filtration Rate 97mL/min (>59) Glucose Level 113mg/dL (60-99) Calcium Level 9.1mg/dL (8.5-10.1) Magnesium Level 1.5mg/dL (1.6-2.6) Total Bilirubin < 0.2mg/dL (0.0-1.2) Aspartate Amino Transf (AST/SGOT) 745U/L (0-50) Alanine Aminotransferase (ALT/SGPT) 563U/L (0-44) Alkaline Phosphatase 51U/L (25-150) Total Creatine Kinase 30924X/L (21-232) Total Protein 5.8g/dL (6.4-8.4) Albumin 3.7g/dL (3.4-5.0) Microbiology Results Name: SUKHDEEP GANDHI Age/Sex: 30/M Attend Dr: David Urbina Acct: [id number] Unit: [id number] Status: ADM IN Location: [place] [address]-2 Re12/16/16 Disch: Specimen: [id number] Collected: 12/16/16 Status: RES Req#: [id number] Received: 12/16/16 Source: URINE CC Sp Desc : Subm Dr: Jamir Navarro MD Ordered: URINE CULT Procedure Result Verified Site Microbiology ROBERTO CULT URINE Preliminary 12/17/16 No growth to date Discharge Medications No Active Prescriptions or Reported Meds Followup Plan Disposition: [facility] Follow-up plan Please get a new PCP and follow-up. Discharge Diet: No restrictions Discharge Activity: Other (please avoid strenous physical activity for the next 1-2 weeks. Please keep hydrated whenever exercisng .) Patient Instructions You were hospitalized due to exertional rhabdomyolysis/muscle breakdown due to exertion with poor hydration. You have been treated with IV fluid aggressively. Please avoid strenuous physical activity for the next 1-2 weeks. Please keep hydrated whenever exercising. Follow-up with PCP in: 2 weeks Time spent 35 minutes coordinating discharge and counseling Frankie Worrell MD Dec 19, 2016 11:43
--- NOTE | 2016-12-19 12:43 | NUR ---
Hydration 0900 MD aware that IV fluids were dc'd by night baker at 0700. Pt taking in po intake, encouraged to remain hydrated.
--- NOTE | 2016-12-19 15:24 | NUR ---
Discharge Pt dc'd ambulatory with son and grandma and [facility]A at 1515. Stable and w/o complaints. All discharge instructions reviewed and pt and family verbalized understanding. MD added instructions for custodial care of BP checks per family request. All belongings with pt. Spoke with social work today prior to discharge about disposition once leaving hospital. IV dc'd w/o complication.
[2016-12-21 13:08] LABS: Antiribosomal P Antibodies <0.2 AI (0.0-0.9); Antiscleroderma - 70 AB <0.2 AI (0.0-0.9)
== END 2016-12-19 15:20 | DRG 565 ==
LOC: SED 08:33 → MOC 11:01
PROVIDERS: ADMIT Internal Medicine Infectious Disease; ATTEND Internal Medicine Infectious Disease
DX: T79.6XXA Traumatic ischemia of muscle, initial encounter (principal); N17.9 Acute kidney failure, unspecified; F17.290 Nicotine dependence, other tobacco product, uncomplicated; X58.XXXA Exposure to other specified factors, initial encounter; Y92.89 Other specified places as the place of occurrence of the external cause; Y93.B2 Activity, push-ups, pull-ups, sit-ups